=== PATIENT | male | born 1940 | race Caucasian/White ===

== ENCOUNTER 2022-01-04 17:40 | Emergency (ER) | payer MEDICARE, OTHER ==
[~2022-01-04] VITALS: Ht 177.8 cm; Wt 68.0 kg
[~2022-01-04 17:40] MED LIST: ASPI81CH PO; DIAZ5 PO; FISH1000 PO; HYDACE5 PO; IBUP800 PO; MAGNESIUM PO; MOMENI; MULVITMINF PO; OSTEO BIO FLEX; TRIHYD253A PO
[2022-01-04] MEDS ORDERED: LOSA25 PO (18:17)
== END 2022-01-04 19:28 | disposition home or self-care (01) ==
LOC: ER 17:40
DX: S00.83XA Contusion of other part of head, initial encounter (principal); I10 Essential (primary) hypertension; Z79.82 Long term (current) use of aspirin; Z79.899 Other long term (current) drug therapy; Z88.5 Allergy status to narcotic agent; W20.8XXA Other cause of strike by thrown, projected or falling object, initial encounter
CPT/HCPCS: 70450; 99283-25

== ENCOUNTER 2023-03-11 11:30 | Day surgery (SDC) | payer MEDICARE, OTHER ==
[~2023-03-11] VITALS: Ht 175.3 cm; Wt 67.3 kg
[~2023-03-11 11:30] MED LIST changes: +LOSA25 PO
[2023-03-11] MEDS ORDERED: KETO15TC TOP (12:24)
[2023-03-11] MEDS ORDERED: TRIDERM28.4 GM TOP (12:24)
[2023-03-11] MEDS ORDERED: Ketoconazole15 GM TP (12:24)
--- NOTE | 2023-03-11 12:31 | NUR ---
03/11/23 1231 [place] [address] [place] [id number]
[2023-03-11 14:07] VITALS: BP 118/86
--- NOTE | 2023-03-11 14:33 | NUR ---
03/11/23 1433 Abelardo Suarez IV REMOVED. SITE WNL.
== END 2023-03-11 14:22 | disposition home or self-care (01) ==
LOC: ORSCSDS 11:30
PROVIDERS: Ophthalmology
PROC: 08RJ3JZ Replacement of Right Lens with Synthetic Substitute, Percutaneous Approach (ICD-10-PCS; principal; 2023-03-11 14:30)
DX: H25.13 Age-related nuclear cataract, bilateral (principal); I10 Essential (primary) hypertension; G47.33 Obstructive sleep apnea (adult) (pediatric); Z79.899 Other long term (current) drug therapy
CPT/HCPCS: J2250; J3010; J3301; J7040; V2632

== ENCOUNTER → 2024-09-01 | Outpatient (CLI) | payer MEDICARE, OTHER ==
[~2024-09-01] MED LIST changes: +KETO15TC TOP; +Ketoconazole15 GM TP; +TRIDERM28.4 GM TOP
[2024-09-01 14:16] LABS: BASOPHILS ABSOLUTE AUTO 0.01 K/mm3 (0.00-0.23); BASOPHILS PERCENT AUTO 0 % (0-2); EOSINOPHILS ABSOLUTE AUTO 0.07 K/mm3 (0.00-0.68); EOSINOPHILS PERCENT AUTO 1 % (0-6); Hematocrit 36.6 % (37.0-53.0); IMMATURE GRAN ABSOLUTE AUTO 0.03 K/mm3 (0.00-0.10); IMMATURE GRAN PERCENT AUTO 0 % (0-1); LYMPHOCYTES PERCENT AUTO 13 % (21-46); MONOCYTES ABSOLUTE AUTO 0.93 K/mm3 (0.16-1.47); MONOCYTES PERCENT AUTO 11 % (4-13); Mean Corpuscular HGB 33.8 pg (26.0-34.0); Mean Corpuscular HGB Conc 35.5 g/dL (31.5-36.5); Mean Corpuscular Volume 95 fL (80-100); Mean Platelet Volume 9.1 fL (9.1-12.4); NEUTROPHILS ABSOLUTE AUTO 6.38 K/mm3 (1.96-9.15); NEUTROPHILS PERCENT AUTO 75 % (41-73); Platelet Count 255 K/mm3 (150-400); RDW Coefficient Variation 12.4 % (11.7-14.2); RDW Standard Deviation 43.2 fL (35.1-46.3); Red Blood Cell Count 3.85 M/mm3 (4.30-5.90); White Blood Cell Count 8.52 K/mm3 (4.00-11.30)
[2024-09-01 14:23] LABS: Bun/Creatinine Ratio 19.2 (12.0-20.0); Calcium, Blood 8.6 mg/dL (8.5-10.1); Creatinine, Blood 1.2 mg/dL (0.60-1.20); Potassium, Blood 3.9 mmol/L (3.5-5.5)
== END ==
LOC: LAB 14:10 → LAB SHORT 14:10
PROVIDERS: Physician Assistant Surgical
DX: M25.532 Pain in left wrist (principal)
CPT/HCPCS: 80048; 85025; 85651; 86140

== ENCOUNTER 2025-06-25 10:52 | Day surgery (SDC) | payer MEDICARE, OTHER ==
[~2025-06-25] VITALS: Ht 177.8 cm; Wt 61.7 kg
[~2025-06-25 10:52] MED LIST changes: +Lidocaine HCl 2% 10 ML SDA ONE; +NS 500 ML IV ONE
[2025-06-25] MEDS ORDERED: CeFAZolin Sodium 2,000 MG VIAL ONE (11:11)
[2025-06-25] MEDS ORDERED: METR59TL (11:26)
[2025-06-25] MEDS ORDERED: NS 500 ML IV ONE (11:33)
--- NOTE | 2025-06-25 13:02 | NUR ---
06/25/25 1302 Rita London REPORT RECEIVED FROM EWA AND RN
[2025-06-25 13:07] VITALS: BP 136/83
[2025-06-25] MEDS ORDERED: Midazolam HCl 5 MG / ML 5ML Vial IV ONE (13:35)
== END 2025-06-25 13:44 | disposition home or self-care (01) ==
LOC: ORSCSDS 10:52
PROVIDERS: Orthopaedic Surgery
PROC: 0RGX04Z Fusion of Left Finger Phalangeal Joint with Internal Fixation Device, Open Approach (ICD-10-PCS; principal; 2025-06-25 12:30)
DX: M15.1 Heberden's nodes (with arthropathy) (principal)
CPT/HCPCS: C1713; C1769; J0690; J2003; J2250; J7040